=== PATIENT | male | born 2000 | race Caucasian/White ===

== ENCOUNTER 2020-04-29 14:48 | Emergency (ER) | payer MEDICAID, OTHER ==
[2020-04-29 15:33] VITALS: BP 147/81; PULSE 93
--- NOTE | 2020-04-29 15:49 | EDM.PDOC ---
ED HPI GENERAL MEDICAL PROBLEM - General Chief Complaint: Headache Stated Complaint: FELL AND HIT HEAD Time Seen by Provider: 04/29/20 15:30 Source of Information: Reports: Patient History Limitations: Reports: No Limitations - History of Present Illness INITIAL COMMENTS - FREE TEXT/NARRATIVE: 19-year-old male slipped on a ramp today falling backwards landing on his back and bumping the back of his head on the ramp. No loss of consciousness patient but he is having a persistent headache. No visual complaints, nausea or vomiting neck pain. His girlfriend made him come in to get checked. Onset: Sudden Duration: Hour(s): (4 hours) Location: Reports: Head Associated Symptoms: Reports: Headaches - Related Data Allergies Allergy/AdvReac Type Severity Reaction Status Date / Time amoxicillin [From Augmentin] Allergy Hives Verified 04/29/20 15:33 clavulanic acid Allergy Hives Verified 04/29/20 15:33 [From Augmentin] Home Meds: Home Meds NK [No Known Home Meds] 04/01/16 [History] Past Medical History HEENT History: Reports: Impaired Vision Gastrointestinal History: Reports: None Musculoskeletal History: Reports: None Neurological History: Reports: Seizure Other Neuro History: epilepsy - Past Surgical History Head Surgeries/Procedures: Reports: None HEENT Surgical History: Reports: Adenoidectomy, Tonsillectomy GI Surgical History: Reports: Hernia Repair/Other Neurological Surgical History: Reports: None Musculoskeletal Surgical History: Reports: Other (See Below) Dermatological Surgical History: Reports: None Social & Family History - Tobacco Use Tobacco Use Status *Q: Never Tobacco User Second Hand Smoke Exposure: No - Caffeine Use Caffeine Use: Reports: None - Recreational Drug Use Recreational Drug Use: No ED ROS GENERAL - Review of Systems Review Of Systems: See Below Constitutional: Denies: Fever, Chills HEENT: Reports: No Symptoms. Denies: Vision Change Respiratory: Denies: Shortness of Breath Cardiovascular: Denies: Chest Pain GI/Abdominal: Denies: Nausea, Vomiting Skin: Denies: Bruising Neurological: Reports: Headache. Denies: Paresthesia, Weakness, Gait Disturbance Psychiatric: Denies: Anxiety ED EXAM, HEAD INJURY - Physical Exam Exam: See Below Exam Limited By: No Limitations General Appearance: Alert, No Apparent Distress Head: Atraumatic, Other (I cannot palpate any tender area, I do not see any swelling, hematoma, bruising or abrasion) Eyes: Bilateral Eye: Normal Inspection, PERRL Neck: Non-Tender, Full Range of Motion Respiratory: Lungs Clear Neurologic: No Motor/Sensory Deficits, Normal Mood/Affect, Oriented x 3, Other (Romberg's negative, no pronator drift) Course - Vital Signs Last Recorded V/S: Last Vital Signs Temp 96.3 F L 04/29/20 15:34 Pulse 93 04/29/20 15:34 Resp 16 04/29/20 15:34 BP 147/81 H 04/29/20 15:34 Pulse Ox 99 04/29/20 15:34 - Re-Assessments/Exams Free Text/Narrative Re-Assessment/Exam: 04/29/20 15:48 Encouraged him to take some anti-inflammatories and rest for the next 24 to 48 hours, increase activity elevated and return if concerning symptoms develop such as asymmetry of weakness, double vision or persistent nausea and vomiting. Departure - Departure Time of Disposition: 15:57 Disposition: Home, Self-Care 01 Clinical Impression: Closed head injury without concussion Qualifiers: Encounter type: initial encounter Qualified Code(s): S09.90XA - Unspecified injury of head, initial encounter - Discharge Information Instructions: Head Injury, Adult, [id number] Referrals: PCP,None [Primary Care Provider] - Forms: ED Department Discharge Care Plan Goals: Rest the next 24 hours, increase actively as tolerated and ibuprofen or naproxen would be helpful. Return if worsening or concerns. Otherwise try to resume normal activity in 2 to 3 days, if unable consider rechecking with your regular doctor. Sepsis Event Note (ED) - Evaluation Sepsis Screening Result: No Definite Risk
== END 2020-04-29 15:57 | disposition home or self-care (01) ==
LOC: JP.ED 14:48
DX: S09.90XA Unspecified injury of head, initial encounter (principal); Z88.1 Allergy status to other antibiotic agents; W01.198A Fall on same level from slipping, tripping and stumbling with subsequent striking against other object, initial encounter
CPT/HCPCS: 99283

== ENCOUNTER 2025-02-04 21:04 | Emergency (ER) | payer SELFPAY ==
[2025-02-04 21:15] VITALS: BP 108/87; PULSE 104
[2025-02-04 21:28] LABS: BASOPHILS ABSOLUTE AUTO 0.11 K/uL (0.00-0.10); BASOPHILS PERCENT AUTO 0.8 % (0.1-1.3); EOSINOPHILS ABSOLUTE AUTO 0.05 K/uL (0.00-0.40); EOSINOPHILS PERCENT AUTO 0.4 % (0.0-5.4); IMMATURE GRAN ABSOLUTE AUTO 0.05 K/uL (0.00-0.23); IMMATURE GRAN PERCENT AUTO 0.4 % (0.0-0.7); LYMPHOCYTES ABSOLUTE AUTO 1.68 K/uL (0.8-3.3); LYMPHOCYTES PERCENT AUTO 12.2 % (11.4-47.7); MONOCYTES ABSOLUTE AUTO 0.94 K/uL (0.20-0.90); MONOCYTES PERCENT AUTO 6.8 % (3.3-12.6); NEUTROPHILS ABSOLUTE AUTO 10.99 K/uL (1.0-7.6); NEUTROPHILS PERCENT AUTO 79.4 % (40.0-78.1); PLATELET COUNT,PLT 366 K/uL (130-375); RED BLOOD CELL COUNT 5.05 M/uL (4.14-5.76); WHITE BLOOD CELL COUNT,WBC 13.8 K/uL (3.2-11.0)
[2025-02-04] MEDS: fentaNYL 50 MCG/ML SDV IVPUSH PRN (21:39)
[2025-02-04] MEDS: droPERidol 0.625 MG in Sodium Chloride 0.9% 50 ML IV ONE (21:39)
[2025-02-04 21:50] LABS: A/G RATIO 1.3 (1.2-2.2); ALANINE AMINOTRANSFERASE,ALT 44 U/L (12-78); ASPARTATE AMNIOTRANSFERASE,AST 28 U/L (15-37); BILIRUBIN TOTAL 0.5 mg/dL (0.2-1.0); BLOOD UREA NITROGEN,BUN 15 mg/dL (7-18); CARBON DIOXIDE,CO2 23 mmol/L (21-32); CHLORIDE,CL 101 mmol/L (100-108); CREATININE 1.5 mg/dL (0.8-1.3); EST CRCL DRUG DOSING (CG) 77.73 mL/min; ESTIMATED GFR 66 mL/min (>60); GLUCOSE RANDOM 106 mg/dL (74-106); POTASSIUM,K 3.5 mmol/L (3.6-5.2); PROTEIN TOTAL,TP 8.8 g/dL (6.4-8.2); SODIUM,NA 139 mmol/L (140-148)
== END 2025-02-04 22:46 | disposition home or self-care (01) ==
LOC: JP.ED 21:04
DX: R11.2 Nausea with vomiting, unspecified (principal); R10.33 Periumbilical pain; Z88.1 Allergy status to other antibiotic agents; Z88.8 Allergy status to other drugs, medicaments and biological substances
CPT/HCPCS: 36415; 80053; 83690; 85025; 96361; 96374; 96375; 99284; J1790; J3010; J7030; 99283